=== PATIENT | female | born 1980 | race Caucasian/White ===

== ENCOUNTER 2023-06-03 07:06 | Day surgery (SDC) | payer BC ==
[~2023-06-03 07:06] MED LIST: Lactated Ringers 1,000 ML IV SCH; Sodium Chloride 0.9% 10 ML Syringe FLUSH PRN
[2023-06-03] MEDS ORDERED: Propofol 200 MG/20 ML SDV IV ONE (07:07)
[2023-06-03] MEDS ORDERED: Ketamine 500 mg/10 ML MDV IV ONE (07:07)
[2023-06-03] MEDS ORDERED: Midazolam 1 MG/ML 2 ML SDV IV ONE (07:07)
[2023-06-03] MEDS ORDERED: Simethicone Drops 40 MG/0.6 ML 30 ML Bottle PO ONE (08:46)
== END 2023-06-03 10:21 | disposition home or self-care (01) ==
LOC: FB.SDS 07:06
PROVIDERS: ATTEND Surgery
DX: Z12.11 Encounter for screening for malignant neoplasm of colon (principal); Q43.8 Other specified congenital malformations of intestine; Z79.899 Other long term (current) drug therapy
CPT/HCPCS: 00812; A9270-GY; J2250; J2704; J3490; J7120